=== PATIENT | male | born 1970 | race Two or more races ===

== ENCOUNTER → 2023-11-28 11:54 | Outpatient (REF) | payer OTHER, SELFPAY | LOC: HWRAD 11:54 | PROVIDERS: ATTENDING PHYSICIAN Family Medicine | DX: R10.9 Unspecified abdominal pain (principal); R31.9 Hematuria, unspecified; N20.0 Calculus of kidney | CPT/HCPCS: 74176 ==

== ENCOUNTER 2023-12-03 06:11 | Day surgery (SDC) | payer OTHER, SELFPAY ==
[2023-12-03] VITALS (10 sets, daily range): BP systolic 93–199; BP diastolic 51–112; BMI 43.7
[2023-12-03] MEDS: NORMOSOL-R 1000 IV (07:05)
[2023-12-03] MEDS: Pyridium 200 MG PO (09:59)
[2023-12-05 23:42] LABS: Stone Analysis Mass 32 mg
== END 2023-12-03 10:52 | disposition home or self-care (01) ==
LOC: SDS 06:11
PROVIDERS: ATTENDING PHYSICIAN Specialist
DX: N20.1 Calculus of ureter (principal)
CPT/HCPCS: 52352; 52332; 74420; 76000; 82365; 93005; C1758; C1894; C2617